=== PATIENT | female | born 1980 | race Caucasian/White ===

== ENCOUNTER 2021-04-29 08:13 | Day surgery (SDC) | payer BC ==
[~2021-04-29 08:13] MED LIST: Albuterol 0.083% 2.5 MG/3 ML Neb Soln NEB PRN; HYDROmorphone 2 MG/ML Syringe IVPUSH PRN; Lactated Ringers 1,000 ML IV SCH; Metoclopramide 10 MG/2 ML SDV IVPUSH PRN; Morphine 2 MG/ML SYRINGE IVPUSH PRN; Naloxone 0.4 MG/ML Syringe IVPUSH PRN; Ondansetron 4 MG/2 ML SDV IVPUSH PRN; Scopolamine 1.5 MG Transdermal Patch TRDERM ONE; Sodium Chloride 0.9% 10 ML SDV IV PRN; Sodium Chloride 0.9% 10 ML Syringe FLUSH PRN; Sodium Chloride 0.9% 2.5 ML Syringe FLUSH PRN; ceFAZolin 2 GM in Premix Bag 1 BAG IV ONE; fentaNYL 100 MCG/2 ML SDV IVPUSH PRN
--- NOTE | 2021-04-29 08:40 | PCM.PREANE ---
Preanesthetic Assessment - Review of Systems General: No Symptoms Pulmonary: No Symptoms Cardiovascular: No Symptoms Gastrointestinal: No Symptoms Neurological: No Symptoms Other: Reports: None - Physical Assessment NPO Status Date: 04/29/21 NPO Status Time: 00:00 Height: 5 ft 5.5 in Weight: 229 lb ASA Class: 2 Mental Status: Alert & Oriented x3 Airway Class: Mallampati = 2 Dentition: Reports: Normal Dentition Thyro-Mental Finger Breadths: 3 Mouth Opening Finger Breadths: 3 ROM/Head Extension: Full Lungs: Clear to Auscultation, Normal Respiratory Effort Cardiovascular: Regular Rate, Regular Rhythm - Allergies Allergies/Adverse Reactions: Allergies Allergy/AdvReac Type Severity Reaction Status Date / Time No Known Allergies Allergy Verified 04/26/21 08:53 - Blood Blood Available: No - Anesthesia Plan Pre-Op Medication Ordered: Other (scopolamnine patch) - Acknowledgements Anesthesia Type Planned: General Anesthesia Pt an Appropriate Candidate for the Planned Anesthesia: Yes Alternatives and Risks of Anesthesia Discussed w Pt/Guardian: Yes Pt/Guardian Understands and Agrees with Anesthesia Plan: Yes PreAnesthesia Questionnaire HEENT History: Reports: None Cardiovascular History: Reports: Arrhythmia Respiratory History: Reports: None Gastrointestinal History: Reports: None Genitourinary History: Reports: None [place] REVERSE [employer]ER History: Reports: , Spontaneous Musculoskeletal History: Reports: Fracture Other Musculoskeletal History: fx elbow as a child Neurological History: Reports: None Psychiatric History: Reports: Other (See Below) Other Psychiatric History: hx post depression Endocrine/Metabolic History: Reports: Hypothyroidism, Obesity/BMI 30+ Hematologic History: Reports: None Immunologic History: Reports: None Oncologic (Cancer) History: Reports: None Dermatologic History: Reports: None - Past Surgical History Head Surgeries/Procedures: Reports: None HEENT Surgical History: Reports: Oral Surgery Cardiovascular Surgical History: Reports: Cardiac Ablation Respiratory Surgical History: Reports: None GI Surgical History: Reports: None Female Surgical History: Reports: D&C, Other (See Below) Other Female Surgeries/Procedures: left paratubal cystectomy Endocrine Surgical History: Reports: None Neurological Surgical History: Reports: None Musculoskeletal Surgical History: Reports: None Oncologic Surgical History: Reports: None Dermatological Surgical History: Reports: None - SUBSTANCE USE Tobacco Use Status *Q: Never Tobacco User - HOME MEDS Home Medications: Home Meds Levothyroxine 75 mcg PO DAILY 04/26/21 [History] Minocycline [Minocin] 50 mg PO BID 04/26/21 [History] Oxybutynin Chloride [Oxybutynin Chloride ER] 15 mg PO DAILY 04/26/21 [History] levonorgestreL [Mirena] 1 device VAG ONETIME 04/26/21 [History] - CURRENT (IN HOUSE) MEDS Current Meds: Current Medications Albuterol (Albuterol 0.083% 2.5 Mg/3 Ml Neb Soln) 2.5 mg NEB ONETIME PRN PRN Reason: Wheezing Droperidol (Droperidol 5 Mg/2 Ml Sdv) 0.625 mg IVPUSH ONETIME PRN PRN Reason: Nausea/Vomiting Fentanyl (Fentanyl 100 Mcg/2 Ml Sdv) 50 mcg IVPUSH Q5M PRN PRN Reason: Pain (mild 1-3) Hydromorphone HCl (Hydromorphone 2 Mg/Ml Syringe) 0.5 mg IVPUSH Q10M PRN PRN Reason: Pain (moderate 4-6) Lactated Ringer's (Ringers, Lactated) 1,000 mls @ 100 mls/hr IV ASDIRECTED ANGEL Last Admin: 04/29/21 08:36 Dose: 100 mls/hr Documented by: Metoclopramide HCl (Metoclopramide 10 Mg/2 Ml Sdv) 10 mg IVPUSH ONETIME PRN PRN Reason: Nausea/Vomiting Morphine Sulfate (Morphine 2 Mg/Ml Syringe) 2 mg IVPUSH Q10M PRN PRN Reason: Pain (severe 7-10) Naloxone HCl (Naloxone 0.4 Mg/Ml Syringe) 0.1 mg IVPUSH ASDIRECTED PRN PRN Reason: Respiratory Depression Ondansetron HCl (Ondansetron 4 Mg/2 Ml Sdv) 4 mg IVPUSH ONETIME PRN PRN Reason: Nausea/Vomiting Sodium Chloride (Sodium Chloride 0.9% 10 Ml Syringe) 10 ml FLUSH ASDIRECTED PRN PRN Reason: Keep Vein Open Sodium Chloride (Sodium Chloride 0.9% 2.5 Ml Syringe) 2.5 ml FLUSH ASDIRECTED PRN PRN Reason: Keep Vein Open Sodium Chloride (Sodium Chloride 0.9% 10 Ml Sdv) 10 ml IV ASDIRECTED PRN PRN Reason: IV Use Discontinued Medications Cefazolin Sodium/Dextrose 2 gm (/ Premix) 50 mls @ 100 mls/hr IV ONETIME ONE Stop: 04/29/21 05:29 Scopolamine (Scopolamine 1.5 Mg Transdermal Patch) 0 mg TRDERM ONETIME ONE Stop: 04/29/21 07:39 Last Admin: 04/29/21 08:37 Dose: 1.5 mg Documented by:
[2021-04-29] MEDS ORDERED: fentaNYL 100 MCG/2 ML SDV ONE (08:45)
[2021-04-29] MEDS ORDERED: Metoclopramide 10 MG/2 ML SDV ONE (08:46)
[2021-04-29] MEDS ORDERED: Dexamethasone 4 MG/ML 5 ML MDV ONE (08:46)
[2021-04-29] MEDS ORDERED: Ondansetron 4 MG/2 ML SDV ONE (08:46)
[2021-04-29] MEDS ORDERED: Lidocaine 1% with EPINEPHrine 1:100,000 20 ML MDV ONE (08:54)
[2021-04-29] MEDS ORDERED: Bupivacaine 0.25% 10 ML SDV ONE (08:54)
[2021-04-29] MEDS ORDERED: Neomycin/Polymyxin B Bladder Irrigation 1 ML Amp ONE (08:54)
[2021-04-29] MEDS ORDERED: ceFAZolin 1 GM Vial ONE (09:18)
[2021-04-29] MEDS ORDERED: Sodium Chloride 0.9% 20 ML ONE (09:19)
[2021-04-29] MEDS ORDERED: propofoL 100 ML ONE (09:50)
[2021-04-29] MEDS ORDERED: Octyl 2-Cyanoacrylate 1 Tube ONE (10:14)
[2021-04-29] MEDS ORDERED: Ketorolac 30 MG/ML SDV ONE (10:19)
--- NOTE | 2021-04-29 10:36 | PCM.OPNOTE ---
- General Post-Op/Procedure Note Date of Surgery/Procedure: 04/29/21 Operative Procedure(s): TOVT Findings: TOMASA with urethral hypermobility Pre Op Diagnosis: TOMASA Post-Op Diagnosis: Same Anesthesia Technique: Local, MAC Primary Surgeon: Annia Garcia Fluid Replacement, Intraop: 1,000 EBL in mLs: 50 Complications: none known Condition: Stable Free Text/Narrative:: Dictation [id number]
--- NOTE | 2021-04-29 10:42 | PCM.POSTAN ---
POST ANESTHESIA ASSESSMENT - MENTAL STATUS Mental Status: Alert, Oriented - VITAL SIGNS Vital Signs: Last Vital Signs Temp 98.4 F 04/29/21 10:24 Pulse 71 04/29/21 10:40 Resp 14 04/29/21 10:40 BP 126/70 04/29/21 10:40 Pulse Ox 96 04/29/21 10:40 - RESPIRATORY Respiratory Status: Respiratory Rate WNL, Airway Patent, O2 Saturation Stable - CARDIOVASCULAR CV Status: Pulse Rate WNL, Blood Pressure Stable - GASTROINTESTINAL GI Status: No Symptoms - POST OP HYDRATION Hydration Status: Adequate & Stable
--- NOTE | 2021-04-29 10:42 | PCM48HPAN ---
Post Anesthesia Note - EVALUATION WITHIN 48HRS OF ANESTHETIC Vital Signs in Normal Range: Yes Patient Participated in Evaluation: Yes Respiratory Function Stable: Yes Airway Patent: Yes Cardiovascular Function Stable: Yes Hydration Status Stable: Yes Pain Control Satisfactory: Yes Nausea and Vomiting Control Satisfactory: Yes Mental Status Recovered: Yes Vital Signs: Last Vital Signs Temp 98.4 F 04/29/21 10:24 Pulse 71 04/29/21 10:40 Resp 14 04/29/21 10:40 BP 126/70 04/29/21 10:40 Pulse Ox 96 04/29/21 10:40
--- NOTE | 2021-04-29 15:15 | OR ---
SURGEON: Annia Garcia M.D. DATE OF PROCEDURE: 04/29/2021 PREOPERATIVE DIAGNOSES: Stress urinary incontinence with urethral hypermobility. POSTOPERATIVE DIAGNOSES: Stress urinary incontinence with urethral hypermobility. PROCEDURE: Transobturator vaginal taping with the Obtryx II system. PRIMARY SURGEON: Annia Garcia M.D. ANESTHESIA: MAC with local. ESTIMATED BLOOD LOSS: 50 mL. COMPLICATIONS: None known. FINDINGS: Stress urinary incontinence with urethral hypermobility. DISPOSITION: The patient to PACU, stable. PROCEDURE DETAILS: Adrianna is a 41-year-old female who has ongoing difficulties with stress urinary incontinence. Cystometry indicates she has a normal PVR with adequate bladder capacity. After discussing options, she would like to proceed with surgical intervention in the form of mid-urethral sling. Risks of procedure have been discussed, and proper consent was obtained. The patient was taken to the operating room where she underwent MAC anesthetic, was placed in modified dorsal lithotomy position, and was prepped and draped in usual sterile fashion. Bladder was drained. Time-out was performed. She received Ancef prophylactically. Retractors were placed in the posterior aspect of the vagina along the adductor longus tendon on either side just below this in line with the clitoral kelley, notching was palpated, and these regions were marked with a marking pen. This region was now prepped with dilute 1% lidocaine with epinephrine and 0.25% Marcaine. Please see nurse's notes for total amount of local dispensed during the procedure. The region was infiltrated with the local anesthetic along the pubic bone and then also just below the urethral meatus in the midline. Prepped this region with local anesthetic as well as the periurethral spaces. Using an 11 blade scalpel, groin incisions were created on either side where the pen ewing were. Vaginally, just below the meatus, an approximately 1 cm midline sagittal mucosal incision was created. Either edge of the mucosa was now grasped with Allis clamps. The periurethral spaces were now dissected sharply and bluntly with Metzenbaum scissors until the medial aspect of the pubic bone was able to be palpated. The right introducer was now placed through the right groin incision, perforating through the transobturator membrane muscle, rotating behind the pubic bone, and exiting through the vaginal incision. On this first entry, the sulcus was slightly perforated. Therefore, the introducer was retracted and reintroduced and no perforation was noted. The tape was attached and removed through the port of entry. Once again, the sulcus was found to be intact. The small deficit that was created with the perforation was reapproximated using a 3- 0 Vicryl. In a similar fashion, it was performed on the patient's left side. The left introducer was placed through the groin incision, perforating through transobturator membrane muscle, rotating behind the pubic bone, and exiting through the vaginal incision attaching the tape and removing through the port of entry. The sulcus was inspected and found to be intact. The introducers were excised from the tape on either side. The sheaths of the tape were now copiously irrigated with saline-Neosporin solution as well as the midline urethra. A Tapia catheter had been placed, and this region was inspected and found to be intact along the urethra. While tenting the tape downwards in the midline, the overlying sheaths were now removed. The bladder was backfilled with 240 mL of saline-Neosporin, and while the patient was awakened enough to cough vigorously, the tape was tightened until leakage was minimized. The tape appeared smooth. An 8 mm Hegar dilator was able to be passed through the urethra as the Tapia catheter had been removed for the attempts at the cough while tightening the tape. This did pass easily helping to reduce the risk for urethral stricture. The tapes were now trimmed at the groin edges. The vaginal mucosa was reapproximated using 3-0 Vicryl in continuous running locked fashion. Hemostasis appeared evident. The groin incisions were reapproximated using Dermabond. Sponge, instrument, and needle counts were correct x2. A Tapia catheter was replaced. The patient will go to PACU with this and will undergo removal of Tapia by instillation when she is more awake. Hemostasis appeared evident. The patient tolerated the procedure well. She will go to PACU in stable condition. SASKIA / JESU /[id number]
== END 2021-04-29 11:55 | disposition home or self-care (01) ==
LOC: MW.SDS 08:13
PROVIDERS: ATTEND Obstetrics & Gynecology
DX: N39.3 Stress incontinence (female) (male) (principal); N36.41 Hypermobility of urethra; E03.9 Hypothyroidism, unspecified; E66.9 Obesity, unspecified; Z98.890 Other specified postprocedural states; Z82.49 Family history of ischemic heart disease and other diseases of the circulatory system; Z79.899 Other long term (current) drug therapy; Z68.37 Body mass index [BMI] 37.0-37.9, adult
CPT/HCPCS: 36415; 57288; 84703; 85027; A9270; C1771; J0690; J1100; J1885; J2405; J2704; J2765; J3010; J3490; J7120; J0131